=== PATIENT | female | born 1975 | race Caucasian/White ===

== ENCOUNTER 2018-07-11 18:51 | Inpatient (IN) | payer OTHER ==
[~2018-07-11] VITALS: Ht 167.6 cm; Wt 40.8 kg
--- NOTE | 2018-07-11 19:58 | NUR ---
Pre-Admission Assessment Pt is a 42 year old female seen in intake, A&Ox4. Pt appears flushed with tremors noted. Pt reports feeling anxious, however replies to all questions. Upon assessment, pt states she is being [facility] for ETOH withdrawal. Vital signs taken, rules of the unit explained such as vital signs Q4H, wasting of controlled substances, kitchen access, and smoking patio privileges. Pt verbalized understanding. Will continue with admission process upon arrival on unit.
[2018-07-11] MEDS ORDERED: ESCI10TA PO (20:26)
[2018-07-11] MEDS ORDERED: FERR325T28 PO (20:26)
[2018-07-11] MEDS ORDERED: ATOR10TA PO (20:26)
[2018-07-11 20:30] VITALS: BP 152/85
[2018-07-11] MEDS ORDERED: MAGNESIUM HYDROXIDE 30 ML LIQUID UDC PO PRN (20:30)
[2018-07-11] MEDS ORDERED: ONDANSETRON ODT 4 MG TAB.RAPDIS SL PRN (20:30)
[2018-07-11] MEDS ORDERED: LORAZEPAM 2 MG/1 ML VIAL IM PRN (20:30)
[2018-07-11] MEDS ORDERED: ACETAMINOPHEN 325 MG TABLET PO PRN (20:30)
[2018-07-11] MEDS ORDERED: LOPERAMIDE HCL 2 MG CAPSULE PO PRN ×2 (20:30)
[2018-07-11] MEDS ORDERED: MAG HYDROX/AL HYDROX/SIMETH 30 ML LIQUID UDC PO PRN (20:30)
[2018-07-11] MEDS ORDERED: THIAMINE HCL 200 MG/2 ML VIAL IM ONE (20:30)
[2018-07-11] MEDS ORDERED: LORAZEPAM 1 MG TABLET PO PRN (20:30)
[2018-07-11] MEDS ORDERED: MIRALAX 17 GM POWD.PACK PO PRN (20:30)
[2018-07-11] MEDS ORDERED: DICYCLOMINE HCL 20 MG TABLET PO PRN (20:30)
[2018-07-11] MEDS ORDERED: ONDANSETRON 4 MG/2 ML VIAL IM PRN (20:30)
[2018-07-11] MEDS ORDERED: IBUPROFEN 600 MG TABLET PO PRN (20:30)
--- NOTE | 2018-07-11 20:30 | NUR ---
Admission The patient is a 42 year old female who presents to [facility] for medically supervised withdrawal from ETOH-Vodka. Patient was escorted on to the unit at 2008 by a female CHECKERING MACHINE ADJUSTER where body search was conducted. Skin check rendered by primary nurse with skin noted intact. Patient is ambulatory with no assistance needed. She is noted to be anxious, restless with flat, depressed affect. She is noted to be disheveled with uncombed hair. She is noted during admission assessment to be very fidgety, often repeating herself, and stating Im just really nervous about being here. She is alert and oriented x4, speech is clear; she is able to make good eye contact during interview often noted to be emotionally labile. She reports her substance use as: 1. ETOH-Vodka: Patient took her first drink of alcohol at the age of [age] years old. She is currently drinking 473mls daily for the past year. Her last drink was 07/11/18 at 0400 drinking 60mls of vodka. When asked if patient is experiencing any signs or symptoms of withdrawal patient states right now Im just feeling nervous and sometimes I get cold. She is noted to be tremulous, increased chills and sweats, anxious, and irritable. Patient denies any seizure history, withdrawal induced delirium, and withdrawal induced cardiac complications, overdoses, blackouts, involuntary psych hospitalizations. She reports her current PCP is Dr. Morse in her hometown of [place]. She denies a current psychiatrist. She reports her past medical history of Anxiety (diagnosed January 2018), hyperlipidemia (diagnosed January 2018), and anemia (diagnosed May 2018). Patient is noted with home medications of Ferrous Sulfate 325mg BID with meals, Lipitor 10mg QHS and Lexapro 10mg daily. Patient reports she was prescribed Lexapro for her anxiety and denies ever being diagnosed with depression. She states I dont feel like Im depressed. Im more stressed than I am that. Patient explains of recently being diagnosed with Anemia and states I went in for a routine physical where they did lab work during the second week of May. I received a phone call that same night telling me to go into the Emergency Room at [facility] because my iron was critically below the normal range. So I was admitted into [facility] for two days and received a blood transfusion and then they sent me home. I was home for about 2 days and started to have diarrhea and feeling lighted headed. I went back to the hospital where I was admitted on more time for 4 days. During those four days they ran a CT scan of my Abdomen and they told me there is scarring on my liver. I also got a colonoscopy where they did a biopsy of my colon, large and small intestine. I never got a result. The last blood work that I received was on 07/07/18 and my results are currently pending. All I remember them telling me is that there is inflammation in my abdomen. Patient reports her drinking started about a year ago. She states It all started because my and I were fighting way too much. My kids are teenagers and feel like they can make adult decisions. I drink to escape the stress. She reports she is seeking treatment and wants to get sober because I was to get healthy again. I want to keep my family together and I know this is the way to do it. Patient reports since she has started drinking consistently for the past year, she has not attempted to get sober and states the stress is too high that I felt like I need to drink. Patient reports that her support system is her immediately family and they are the ones who encouraged her to receive treatment. The consequence of her drinking has been this all is affecting my marriage and my relationship with my children. I dont want my family to be or for it to fall apart. Patient is very motivated in maintaining a sober lifestyle and is willing to seek detention treatment but is unsure of the process or of the location of the treatment facility. Explained to patient that administration would be made aware and assist patient with placement. Patient is able to verbalize understanding. Vitals signs rendered and noted as: 152/85, 89, 18, 99%, 98.2, 0/10 pain. Breathing even and non labored. Lung sounds clear. Bowel sounds active in all quadrants. Patient follows a regular diet. Allergies to Bactrim and Doxycycline. Full code. Height is noted 56 and weight 90lbs. Smoking approximately 20 cigarettes a day. Educated patient about plan of care including detox, group therapy, individual therapy, discharge planning and she was able to verbalize understanding. Admission CIWA noted to be 17. All information was relayed to MD with new orders for PRN medications for increased signs and symptoms of withdrawal. Labs ordered to be rendered. All needs attended to promptly. Will continue plan of care as ordered.
[2018-07-11 20:53] LABS: *URINE HCG, QUAL NEGATIVE (NEGATIVE)
[2018-07-11 21:06] LABS: *AMPHETAMINE, URINE NEGATIVE (NEGATIVE); *BARBITURATE, URINE NEGATIVE (NEGATIVE); *CANNABINOID, URINE NEGATIVE (NEGATIVE); *COCCAINE, URINE NEGATIVE (NEGATIVE); *OPIATE, URINE NEGATIVE (NEGATIVE); *PHENCYCLIDINE SCREEN,URINE NEGATIVE (NEGATIVE)
[2018-07-11] MEDS: LORAZEPAM 1 MG TABLET PO PRN (22:47)
--- NOTE | 2018-07-11 22:50 | NUR ---
PRN Medication Administration Patient is noted with increased agitation, tremulous, chills, sweats, restlessness, anxiety, intermittent headache. CIWA noted to be 17. PRN Ativan 2mg administered as per order. Will continue to monitor.
[2018-07-11 23:29] LABS: BASOPHILS # (AUTO) 0.1 K/uL (0.0-8.0); BASOPHILS % (AUTO) 1.9 % (0.0-2.0); EOSINOPHILS # (AUTO) 0.1 K/uL (0.0-0.7); EOSINOPHILS % (AUTO) 1.5 % (0.0-7.0); HEMATOCRIT 30.2 % (31.2-41.9); HEMOGLOBIN 9.8 g/dL (10.9-14.3); LYMPHOCYTES # (AUTO) 1.3 K/uL (20.0-40.0); LYMPHOCYTES % (AUTO) 23.2 % (20.5-51.5); MEAN CORPUSCULAR HEMOGLOBIN 27.5 uug (24.7-32.8); MEAN CORPUSCULAR HGB CONC 32 g/dL (32.3-35.6); MEAN CORPUSCULAR VOLUME 84.7 fL (75.5-95.3); MONOCYTES # (AUTO) 0.5 K/uL (2.0-10.0); MONOCYTES % (AUTO) 9.4 % (0.0-11.0); NEUTROPHILS # (AUTO) 3.7 K/uL (1.8-8.9); PLATELET COUNT (AUTO) 243 K/uL (179-408); RED BLOOD CELL COUNT(AUTO) 3.57 MIL/uL (3.63-4.92); WHITE BLOOD COUNT (AUTO) 5.8 K/uL (3.8-11.8)
[2018-07-11 23:46] LABS: ALANINE AMINOTRANSFERASE 19 U/L (14-59); ALKALINE PHOSPHATASE 69 U/L (50-136); AMYLASE 107 U/L (25-115); ASPARTATE AMINOTRANSFERASE 38 U/L (15-37); BILIRUBIN,TOTAL 0.3 mg/dL (0.2-1.0); CARBON DIOXIDE 26 mmol/L (21-32); CHLORIDE 104 mmol/L (98-107); CREATININE 0.8 mg/dL (0.6-1.3); GLUCOSE 76 mg/dL (74-106); LIPASE 281 U/L (73-393); MAGNESIUM 1.4 mg/dL (1.8-2.4); TOTAL PROTEIN, SERUM 6.7 g/dL (6.4-8.2); UREA NITROGEN, BLOOD 9 mg/dL (7-18)
[2018-07-11 23:55] LABS: THYROID STIMULATING HORMONE 1.825 mIU/mL (0.358-3.740)
[2018-07-12] VITALS (7 sets, daily range): BP systolic 121–135; BP diastolic 80–85
--- NOTE | 2018-07-12 | NUR ---
PRN Medication Reassessment/CIWA Assessment Patient is noted in bed with eyes closed. Breathing even and non labored. Patient is easily awakened to verbal stimuli. CIWA assessment completed and patient is noted with increased anxiety, easily irritable, sweats, and tremulous to touch. CIWA noted to be 4. Vitals rendered. PRN Ativan 2mg noted to be effective. Will continue to monitor.
[2018-07-12 00:02] LABS: ETHANOL < 3 MG/DL (0-0)
[2018-07-12] MEDS ORDERED: MAGNESIUM OXIDE 400 MG TABLET PO ONE (00:15)
[2018-07-12] MEDS ORDERED: POTASSIUM CHLORIDE 20 MEQ TAB.PRT.SR PO ONE (00:15)
--- NOTE | 2018-07-12 01:00 | NUR ---
Labs resulted. Potassium resulted 3.0 and magnesium 1.4. Per unit protocol potassium supplemented with KDUR 40meq onetime dose and Magnesium with Mag Ox 800mg one time dose. Patient tolerated well. Will continue to monitor.
[2018-07-12] MEDS ORDERED: NORG1TAB PO (03:45)
--- NOTE | 2018-07-12 04:37 | NUR ---
CIWA Assessment Patient is noted in bed with eyes closed. Breathing even and non labored. Vitals rendered. Patient is noted to easily fall back to sleep with no signs or symptoms of withdrawal verbalized. CIWA not able to be completed as per order. Will continue to monitor.
--- NOTE | 2018-07-12 06:59 | NUR ---
End of Shift Patient is noted in bed with eyes closed. Breathing even and non labored. Patient continues on PRN medications for increased signs and symptoms of withdrawal. Patient received PRN Ativan 2mg for increased anxiety, restlessness, agitation, tremors, chills and sweats with medication noted to be effective. Labs resulted and Potassium noted at 3.0 and magnesium noted at 1.4. One time orders for KDUR 40meq and Mag ox 800mg. Last noted CIWA 4. Patient noted to sleep a total of 6 hours. All needs attended to promptly. Will continue plan of care as ordered.
--- NOTE | 2018-07-12 07:30 | NUR ---
START OF SHIFT Pt 42 y/o female admitted for etoh withdrawal. Pt received in room awake watching television. Pt alert and oriented to name, place, and time. Perrla. Skin warm and moist to touch. Respirations even and unlabored. Appears disheveled. Hair uncombed. Clothes and blankets scattered throughout the room. Encouraged to maintain hygiene. Anxious and restless. Not able to lay still. Bilateral hand tremors noted. Intermittent perspiration. Complaints of generalized discomfort. It was reported the that pt slept for 6 hours last night. Last ciwa=4 @ 0000. Pt is on prn ativan. Bed on lowest position with side rails x2 up for safety. Call light within reach.
[2018-07-12] MEDS: LORAZEPAM 1 MG TABLET PO PRN (08:34)
[2018-07-12] MEDS: THIAMINE HCL 100 MG TABLET PO SCH (08:34)
[2018-07-12] MEDS: FOLIC ACID 1 MG TABLET PO SCH (08:34)
[2018-07-12] MEDS: MULTIVITAMINS,THERAPEUTIC TABLET PO SCH (08:34)
--- NOTE | 2018-07-12 08:38 | NUR ---
PRN ATIVAN ciwa=16. Very anxious and restless. Fidgety. Constantly switching positions in bed. Irritable. Bilateral hand tremors. Intermittent perspiration. Ativan 2mg po prn per MD order given and tolerated well.
[2018-07-12] MEDS ORDERED: TUBERCULIN,PURIF.PROT.DERIV. 5 TU/0.1 ML TEST ID ONE (09:00)
--- NOTE | 2018-07-12 09:38 | NUR ---
PRN LONI WATT ciwa=8. Pt anxious. Irritable. Fidgety. Bilateral hand tremors. Pressured speech.
[2018-07-12] MEDS: ESCITALOPRAM OXALATE 10 MG TABLET PO SCH (10:18)
[2018-07-12] MEDS ORDERED: 5 DAY PHENOBARBITAL TAPER -SERENITY PROTOCOL PO PRN (10:30)
--- NOTE | 2018-07-12 12:00 | NUR ---
CIWA ASSESSMENT ciwa=10. Bilateral hand tremors noted. Anxious and restless. Pressured speech. Not able to sit still. Pacing. Complaints of intermittent perspiration and generalized discomfort.
[2018-07-12] MEDS: PHENOBARBITAL 60 MG TABLET PO SCH ×2 (14:03→22:07)
--- NOTE | 2018-07-12 16:04 | NUR ---
CIWA ASSESSMENT ciwa=10. Anxious and restless. Pressured speech. Bilateral hand tremors noted. Irritable. Not able to sit still. Pacing. Complaints of generalized discomfort.
[2018-07-12] MEDS: FERROUS SULFATE 325 MG TABEC PO SCH (17:05)
--- NOTE | 2018-07-12 18:17 | NUR ---
END OF SHIFT Pt 42 y/o male admitted for etoh withdrawal. Pt alert and oriented to name, place, and time. Perrla. Skin warm and moist to touch. Respirations even and unlabored. Appears disheveled and unkempt. Hair uncombed. Clothes and empty drink cups scattered throughout the room. Encouraged to maintain hygiene. Mostly isolative to room throughout the day with minimal peer interaction. Selective with group activity. Medication compliant. Last ciwa= 10 @1600. Pt started on a 5 day Phenobarbital taper today and is on day 1. Bed on lowest position with side rails x2 up for safety. Call light within reach.
--- NOTE | 2018-07-12 19:30 | NUR ---
START OF SHIFT Pt is a 42 y/o female admitted on 07/11/18 for ETOH withdrawal. Pt is on a 5 day Phenobarbital taper, tolerating well. Last CIWA 10 and PRN Ativan 2 mg administered during day shift. Upon assessment pt presents with restlessness with difficulty sitting still, severe anxiety, tremors, agitation, difficulty thinking clearly, headache, disheveled appearance, difficulty falling asleep, unkempt room. Medications due. Safety measures in place. Call light within reach. Will continue to monitor.
--- NOTE | 2018-07-12 20:00 | NUR ---
CIWA ASSESSMENT CIWA 15. Pt presents with difficulty sitting still, severe anxiety, tremors, agitation, difficulty thinking clearly, headache, disheveled appearance, difficulty falling asleep, unkempt room. Safety measures in place. Call light within reach. Will continue to monitor.
[2018-07-12] MEDS: ATORVASTATIN 10 MG TABLET PO SCH (20:22)
--- NOTE | 2018-07-12 20:22 | NUR ---
PRN ATIVAN 1 MG ADMINISTRATION CIWA 15. Pt presents with difficulty sitting still, severe anxiety, tremors, agitation, difficulty thinking clearly, headache. Safety measures in place. Call light within reach. Will continue to monitor.
--- NOTE | 2018-07-12 21:22 | NUR ---
PRN ATIVAN REASSESSMENT CIWA 12. Pt has improvement in anxiety and tremors. Pt reports anxiety is still high. Encouraged relaxation techniques. Safety measures in place. Call light within reach. Will continue to monitor.
[2018-07-12] MEDS: diphenhydrAMINE 50 MG CAPSULE PO PRN (23:13)
--- NOTE | 2018-07-12 23:13 | NUR ---
PRN BENADRYL ADMINISTRATION Pt requests sleep aid, reports difficulty falling asleep. Safety measures in place. Call light within reach. Will continue to monitor.
--- NOTE | 2018-07-13 | NUR ---
CIWA DEFERRED AND VITALS REFUSED Pt laying in bed with eyes closed, CIWA deferred, to be assessed when pt is awake per orders. Vitals refused. Respirations even and unlabored. Safety measures in place. Call light within reach. Will continue to monitor.
--- NOTE | 2018-07-13 00:13 | NUR ---
PRN BENADRYL REASSESSMENT Pt laying in bed with eyes closed, medication noted effective.
[2018-07-13 04:00] VITALS: BP 131/83
--- NOTE | 2018-07-13 04:00 | NUR ---
CIWA ASSESSMENT CIWA 11. Pt woke up and requests to smoke. Pt presents with anxiety, restlessness, tremors, sweats.
[2018-07-13] MEDS: HYDROXYZINE PAMOATE 25 MG CAPSULE PO PRN ×3 (04:32→20:24)
--- NOTE | 2018-07-13 04:32 | NUR ---
PRN VISTARIL ADMINISTRATION Pt reports anxiety with difficulty going back to sleep. Safety measures in place. Call light within reach. Will continue to monitor.
--- NOTE | 2018-07-13 05:32 | NUR ---
PRN VISTARIL REASSESSMENT Pt laying in bed with eyes closed, medication noted effective. Safety measures in place. Call light within reach. Will continue to monitor.
--- NOTE | 2018-07-13 07:07 | NUR ---
END OF SHIFT Pt is a 42 y/o female admitted on 07/11/18 for ETOH withdrawal. Pt is on a 5 day Phenobarbital taper, tolerating well. Pt presented with restlessness with difficulty sitting still, severe anxiety, tremors, agitation, difficulty thinking clearly, headache, disheveled appearance, difficulty falling asleep, unkempt room. Scheduled medications and PRN Ativan 1 mg, Vistaril, Benadryl administered, effective in S/S of withdrawal as verbalized by pt. Last CIWA 11. Pt slept 7 hours. Intake 1598 ml, void x 3, stool x 0. Safety measures in place. Call light within reach. Endorsed to day shift nurse.
--- NOTE | 2018-07-13 07:31 | NUR ---
START OF SHIFT NOTE Received report from night nurse, 42 year old female admitted for ETOH withdrawal and continues with 5 days Phenobarbital taper tolerated well. Per endorsement patient received PRN Ativan, Benadryl, Vistaril effective per night nurse, last CIWA score was-11, slept for 7 hours. Received patient asleep responsive to verbal and tactile stimuli. Breathing normal no SOB noted. Skin intact warm and dry to touch. All safety measures in place. Will continues with plan of care.
[2018-07-13 08:00] VITALS: BP 126/81
[2018-07-13 08:05] LABS: BASOPHILS # (AUTO) 0.1 K/uL (0.0-8.0); BASOPHILS % (AUTO) 2.4 % (0.0-2.0); EOSINOPHILS # (AUTO) 0.3 K/uL (0.0-0.7); HEMATOCRIT 29.5 % (31.2-41.9); HEMOGLOBIN 9.7 g/dL (10.9-14.3); LYMPHOCYTES # (AUTO) 1.1 K/uL (20.0-40.0); LYMPHOCYTES % (AUTO) 25.3 % (20.5-51.5); MEAN CORPUSCULAR HEMOGLOBIN 28.8 uug (24.7-32.8); MEAN CORPUSCULAR HGB CONC 33 g/dL (32.3-35.6); MEAN CORPUSCULAR VOLUME 87.5 fL (75.5-95.3); MONOCYTES # (AUTO) 0.5 K/uL (2.0-10.0); NEUTROPHILS # (AUTO) 2.3 K/uL (1.8-8.9); NEUTROPHILS % (AUTO) 55.3 % (38.5-71.5); PLATELET COUNT (AUTO) 267 K/uL (179-408); RED BLOOD CELL COUNT(AUTO) 3.38 MIL/uL (3.63-4.92); WHITE BLOOD COUNT (AUTO) 4.2 K/uL (3.8-11.8)
[2018-07-13] MEDS: FOLIC ACID 1 MG TABLET PO SCH (08:12)
[2018-07-13] MEDS: THIAMINE HCL 100 MG TABLET PO SCH (08:12)
[2018-07-13] MEDS: PHENOBARBITAL 60 MG TABLET PO SCH ×4 (08:12→20:24)
[2018-07-13] MEDS: MULTIVITAMINS,THERAPEUTIC TABLET PO SCH (08:12)
[2018-07-13] MEDS: FERROUS SULFATE 325 MG TABEC PO SCH ×2 (08:12→17:05)
[2018-07-13] MEDS: ESCITALOPRAM OXALATE 10 MG TABLET PO SCH (08:12)
--- NOTE | 2018-07-13 08:12 | NUR ---
CIWA ASSESSMENT CIWA score noted -10, patient reported increased in anxiety, agitation, restless, bilateral hand tremors noted. Patient received her scheduled medications. Will cont to monitor.
[2018-07-13 08:20] LABS: BILIRUBIN,DIRECT 0.1 mg/dL (0.0-0.2); BILIRUBIN,TOTAL 0.3 mg/dL (0.2-1.0); CREATININE 0.8 mg/dL (0.6-1.3); MAGNESIUM 1.8 mg/dL (1.8-2.4); POTASSIUM 3.7 mmol/L (3.5-5.1); TOTAL PROTEIN, SERUM 6.4 g/dL (6.4-8.2)
[2018-07-13 12:00] VITALS: BP 134/87
--- NOTE | 2018-07-13 12:18 | NUR ---
CIWA ASSESSMENT CIWA score noted -11, Patient noted anxious, agitated, restless, diaphoretic, bilateral hand tremors noted. Patient received her scheduled medications. Will cont to monitor.
--- NOTE | 2018-07-13 12:43 | NUR ---
Therapist prompted client to attend all group therapy sessions. Client stated she is feeling less fatigued she will attend.
--- NOTE | 2018-07-13 13:50 | NUR ---
PRN VISTARIL Patient reported increased in anxiety, agitation, restless. Patient provided with non pharmacological intervention with no relief. PRN Vistaril 25mg PO administered as ordered. Will cont to monitor and reassess the patient.
--- NOTE | 2018-07-13 14:50 | NUR ---
VISTARIL REASSESSMENT Per patient Vistaril was effective anxiety, agitation, restless subsided.
[2018-07-13 16:00] VITALS: BP 126/96
--- NOTE | 2018-07-13 19:03 | NUR ---
END OF SHIFT NOTE Gave report to night nurse, patient is admitted for ETOH withdrawal and continues with Phenobarbital taper tolerating well. Patient presented with flat facial expression, unkempt, anhedonia, anxiety, agitation, restlessness, sweats, bilateral hand tremors. Patient was given her scheduled medications along with PRN Vistaril for anxiety noted to be effective. Last CIWA score noted- 10. Patient noted attending group activities. Encourage PO fluids as tolerated. Vital signs WNL. Patient denies any SI/HI. All safety measures in place. Endorse care to night nurse.
--- NOTE | 2018-07-13 19:10 | NUR ---
Start of Shift Received 30 year old female admitted 07/11/18 to [facility] for medically supervised withdrawal from ETOH. Pt currently on day 2 of 5 day Phenobarbital taper, tolerating well. Last CIWA 10 @ 1600. PRN Vistoril given during day shift. Pt in bed, awake, alert, and oriented. Pt tearful, anxious, agitated, and visible tremors. Depressed and feeling guilty about her children. Upset that her would not let her speak with them. Pt redirected to recovery and plan of care which she verbalizes understanding and willingness to comply. Bed low, side rails up x 2, and call otero in reach. Continue to monitor.
[2018-07-13 20:13] VITALS: BP 139/94
[2018-07-13] MEDS: CLONIDINE HCL 0.1 MG TABLET PO PRN (20:24)
--- NOTE | 2018-07-13 20:24 | NUR ---
PRN Clonidine/Vistaril Pt anxious, agitated and shaky. CIWA 12. BP 139/94. Clonidine and Vistaril given per order. Will monitor effect.
--- NOTE | 2018-07-13 21:19 | NUR ---
Reassess PRN Clonidine/Vistaril Pt has decreased anxiety. Shakiness has resolved. BP 134/87
[2018-07-13] MEDS: diphenhydrAMINE 50 MG CAPSULE PO PRN (21:58)
[2018-07-13] MEDS: ATORVASTATIN 10 MG TABLET PO SCH (21:58)
--- NOTE | 2018-07-13 21:58 | NUR ---
PRN Benadryl Pt requested something to help sleep. Benadryl given per order. Will monitor effect.
--- NOTE | 2018-07-13 22:58 | NUR ---
Reassess PRN Benadryl Medication effective. Pt resting with eyes closed. Respirations even and unlabored. Will continue to monitor.
--- NOTE | 2018-07-14 00:10 | NUR ---
CIWA deferred/Vital refused Pt resting with eyes closed. Respirations even and unlabored. CIWA deferred and vitals refused. Will continue to monitor.
--- NOTE | 2018-07-14 04:05 | NUR ---
CIWA deferred/Vitals refused Pt resting with eyes closed. Respirations are even and unlabored. CIWA deferred and vitals refused.
--- NOTE | 2018-07-14 06:44 | NUR ---
End of Shift Endorsing 30 year old female admitted 07/11/18 to [facility] for medically supervised withdrawal from ETOH. Pt currently on day 3 of 5 day Phenobarbital taper, tolerating well. Last CIWA 12 @ 1999. PRN Clonidine, Vistaril, and Benadryl given during maintenance supervisor 2nd shift. PO intake 1151 ml, voided x 3, BM x 0, and slept 8 hours. Pt in bed resting with eyes closed. Respirations are even and unlabored. Bed low, side rails up x 2, and call otero in reach.
[2018-07-14 07:33] LABS: BASOPHILS # (AUTO) 0.1 K/uL (0.0-8.0); EOSINOPHILS # (AUTO) 0.3 K/uL (0.0-0.7); EOSINOPHILS % (AUTO) 6.6 % (0.0-7.0); HEMATOCRIT 29.2 % (31.2-41.9); HEMOGLOBIN 9.7 g/dL (10.9-14.3); LYMPHOCYTES # (AUTO) 1.1 K/uL (20.0-40.0); LYMPHOCYTES % (AUTO) 26.1 % (20.5-51.5); MEAN CORPUSCULAR HEMOGLOBIN 29.4 uug (24.7-32.8); MEAN CORPUSCULAR HGB CONC 33 g/dL (32.3-35.6); MEAN CORPUSCULAR VOLUME 88.8 fL (75.5-95.3); MONOCYTES # (AUTO) 0.4 K/uL (2.0-10.0); MONOCYTES % (AUTO) 8.4 % (0.0-11.0); NEUTROPHILS # (AUTO) 2.5 K/uL (1.8-8.9); NEUTROPHILS % (AUTO) 56.9 % (38.5-71.5); PLATELET COUNT (AUTO) 273 K/uL (179-408); RED BLOOD CELL COUNT(AUTO) 3.29 MIL/uL (3.63-4.92); WHITE BLOOD COUNT (AUTO) 4.3 K/uL (3.8-11.8)
[2018-07-14 07:49] LABS: BILIRUBIN,DIRECT 0.1 mg/dL (0.0-0.2); BILIRUBIN,TOTAL 0.3 mg/dL (0.2-1.0); TOTAL PROTEIN, SERUM 6.3 g/dL (6.4-8.2)
--- NOTE | 2018-07-14 07:58 | NUR ---
START OF SHIFT NOTE Received report from night nurse, 42 year old female admitted for ETOH withdrawal and continues with 5 days Phenobarbital taper and on day 3 tolerating well. Per endorsement patient received PRN Benadryl, Vistaril, Clonidine effective per night nurse, last CIWA score was-12, slept for 8 hours. Received patient anxious, agitated, bilateral hand tremors. Patient is due for scheduled medications. Breathing normal no SOB noted. Skin intact warm and dry to touch. All safety measures in place. Will continues with plan of care.
[2018-07-14 08:00] VITALS: BP 108/69
[2018-07-14] MEDS: THIAMINE HCL 100 MG TABLET PO SCH (08:23)
[2018-07-14] MEDS: ESCITALOPRAM OXALATE 10 MG TABLET PO SCH (08:23)
[2018-07-14] MEDS: FERROUS SULFATE 325 MG TABEC PO SCH ×2 (08:23→17:06)
[2018-07-14] MEDS: PHENOBARBITAL 60 MG TABLET PO SCH ×3 (08:23→20:04)
[2018-07-14] MEDS: MULTIVITAMINS,THERAPEUTIC TABLET PO SCH (08:23)
[2018-07-14] MEDS: FOLIC ACID 1 MG TABLET PO SCH (08:23)
--- NOTE | 2018-07-14 08:23 | NUR ---
CIWA ASSESSMENT CIWA score noted -11, patient presented with flat facial expression, anxious, agitated, restless, sweats, bilateral hand tremors noted. Patient received her scheduled medications. Will cont to monitor.
[2018-07-14 10:11] LABS: HEPATITIS B SURFACE AG Negative (Negative)
[2018-07-14 12:00] VITALS: BP 115/72
--- NOTE | 2018-07-14 12:00 | NUR ---
CIWA ASSESSMENT CIWA score noted -10, patient continues to presented with flat facial expression, anxious, agitated, restless, sweats, bilateral hand tremors noted. Encourage patient to use distraction, patient verbalized understanding. Will cont to monitor.
[2018-07-14] MEDS: HYDROXYZINE PAMOATE 25 MG CAPSULE PO PRN ×2 (12:53→20:04)
--- NOTE | 2018-07-14 13:53 | NUR ---
VISTARIL REASSESSMENT Per patient Vistaril was effective anxiety, agitation, restless decreased.
--- NOTE | 2018-07-14 14:28 | NUR ---
Therapist prompted client to attend all group therapy sessions.
[2018-07-14 16:00] VITALS: BP 130/90
--- NOTE | 2018-07-14 19:10 | NUR ---
END OF SHIFT NOTE Gave report to night nurse, 42 year old female patient admitted for ETOH withdrawal and continues with phenobarbital taper tolerating well. Patient presented with sad facial expression, anhedonia, anxiety, agitation, restless, sweats, emotional volatility, general body discomfort, bilateral hand tremors, headache. Patient was given schedule medications along with PRN Vistaril noted to be effective. Last CI-. Patient denies any SI/HI. Vital signs WNL. Patient noted attending groups and activities. Encourage PO fluids as tolerated. All needs attended. All safety measures in place, call light within reach. Patient endorse to night nurse in stable condition.
--- NOTE | 2018-07-14 19:50 | NUR ---
Start of Shift Patient presents with increasing anxiety, tremors and noted to be fidgety. Patient is emotional, verbalized: "There are times when I really feel this way. I don't know, there are a bunch of things go through my mind." Patient is melancholic and is teary-eyed. Fall, universal, seizure and safety prec in place. Call light within reach. Latest CIWA=11. Will continue to monitor. Addendum: 07/15/18 at 0547 by TESSIE DIA RN CORRECTION: CIWA=12
[2018-07-14 20:00] VITALS: BP 134/93
[2018-07-14] MEDS: CLONIDINE HCL 0.1 MG TABLET PO PRN (20:04)
[2018-07-14] MEDS: ATORVASTATIN 10 MG TABLET PO SCH (20:04)
--- NOTE | 2018-07-14 20:05 | NUR ---
PRN Clonidine and Vistaril Patient c/o feeling anxious, noted to be emotional and with tremors observed. Administered Clonidine 0.1 mg PO PRN and Vistaril 25 mg PO PRN. Will reassess.
--- NOTE | 2018-07-14 21:05 | NUR ---
Clonidine and Vistaril reassess Patient verbalized relief from anxiety, with less tremors. Patient continues to be emotional.
[2018-07-14] MEDS: diphenhydrAMINE 50 MG CAPSULE PO PRN (22:39)
--- NOTE | 2018-07-14 22:40 | NUR ---
PRN Benadryl Patient c/o inability to sleep. Administered Benadryl 50 mg PO PRN. Will reassess.
--- NOTE | 2018-07-14 23:40 | NUR ---
Benadryl Reassess Patient lying in bed with eyes closed without facial grimacing nor SOB.
[2018-07-15] VITALS: BP 125/85
--- NOTE | 2018-07-15 | NUR ---
CIWA=11 Patient verbalized that she has intermittent anxiety and continues to have tremors. Patient stated that she is emotionally labile when she remembers things from her past.
[2018-07-15 04:00] VITALS: BP 129/87
--- NOTE | 2018-07-15 04:00 | NUR ---
CIWA=9 Patient continues to have intermittent anxiety, verbalized that she is less anxious now as compared to the start of shift. Patient still has tremors.
--- NOTE | 2018-07-15 07:22 | NUR ---
End of Shift Patient verbalized that she continues to have intermittent anxiety and tremors. Patient continues to be emotional, melancholic and is labile. Fall, universal, seizure and safety prec in place. Call light within reach. Latest CIWA=9, slept for 7 hours. Endorsed to AM shift nurse for continuity of care.
--- NOTE | 2018-07-15 07:30 | NUR ---
START OF SHIFT NOTE Received report from night nurse, 42 year old female admitted for ETOH withdrawal and continues with 5 days Phenobarbital taper tolerated well. Per endorsement patient received PRN Clonidine, Benadryl, Vistaril effective per night nurse, last CIWA score was-9, slept for 7 hours. Received patient asleep responsive to verbal and tactile stimuli. Breathing normal no SOB noted. Skin intact warm and dry to touch. All safety measures in place. Will continues with plan of care.
[2018-07-15 08:00] VITALS: BP 104/63
[2018-07-15] MEDS: MULTIVITAMINS,THERAPEUTIC TABLET PO SCH (08:11)
[2018-07-15] MEDS: FERROUS SULFATE 325 MG TABEC PO SCH ×2 (08:11→17:01)
[2018-07-15] MEDS: ESCITALOPRAM OXALATE 10 MG TABLET PO SCH (08:11)
[2018-07-15] MEDS: PHENOBARBITAL 60 MG TABLET PO SCH ×2 (08:11→20:45)
[2018-07-15] MEDS: FOLIC ACID 1 MG TABLET PO SCH (08:11)
[2018-07-15] MEDS: THIAMINE HCL 100 MG TABLET PO SCH (08:11)
--- NOTE | 2018-07-15 08:11 | NUR ---
CIWA ASSESSMENT Patient presented with labile facial expression, patient verbalized feeling anxious, restless, sweats, bilateral hand tremors noted. CIWA score noted-11. Patient received her schedule medications. Will cont to monitor.
[2018-07-15 08:14] LABS: IRON, SERUM 27 ug/dL (50-175)
[2018-07-15 12:00] VITALS: BP 126/84
--- NOTE | 2018-07-15 12:00 | NUR ---
CIWA ASSESSMENT CIWA score noted-10, patient continues to presented with sad facial expression, anxious, agitated, restless, sweats, bilateral hand tremors noted. Encourage patient to use distraction, patient verbalized understanding. Will cont to monitor.
[2018-07-15] MEDS: HYDROXYZINE PAMOATE 25 MG CAPSULE PO PRN ×2 (13:08→22:29)
--- NOTE | 2018-07-15 13:08 | NUR ---
PRN VISTARIL Patient came to the nursing station and reported increased in anxiety, agitation, restless. Patient provided with non pharmacological intervention with no relief. PRN Vistaril 25mg PO administered as ordered. Will cont to monitor and reassess the patient.
--- NOTE | 2018-07-15 14:08 | NUR ---
VISTARIL REASSESSMENT Per patient Vistaril was effective in lowering her anxiety, agitation, restless.
[2018-07-15 16:00] VITALS: BP 136/87
--- NOTE | 2018-07-15 19:15 | NUR ---
END OF SHIFT NOTE Gave report to night nurse, 42 year old female admitted for ETOH withdrawal and continues with Phenobarbital taper tolerating well. Patient continues to exhibit anxiety, agitation, restless, labile facial expression, anhedonia, unkempt room, diaphoretic, worried, patient was given scheduled medications and PRN Vistaril 25mg PO noted to be effective. Encourage PO fluids as tolerated. Last CIWA score was-9. Encourage patient to attend groups activities to learn new coping skills. Patient verbalized understanding. All safety measures in place, call light within reach. Patient endorse to night nurse in stable condition.
[2018-07-15 20:00] VITALS: BP 130/88
--- NOTE | 2018-07-15 20:00 | NUR ---
Start of Shift Patient noted to be anxious, isolative and melancholic. Patient is emotionally labile. Patient with tremors. Patient verbalized that her day was "okay. It could have been better." Hair is unkempt. Fall, universal, seizure and safety prec in place. Call light within reach. Latest CIWA=10. Will continue to monitor.
[2018-07-15] MEDS: ATORVASTATIN 10 MG TABLET PO SCH (20:45)
[2018-07-15] MEDS: diphenhydrAMINE 50 MG CAPSULE PO PRN (22:29)
[2018-07-15] MEDS: CLONIDINE HCL 0.1 MG TABLET PO PRN (22:29)
--- NOTE | 2018-07-15 22:30 | NUR ---
PRN Vistaril, Clonidine and Benadryl Patient c/o feeling increasingly anxious. Patient noted to be tremulous and emotional. UV=428/91, Pulse=92. Patient also c/o inability to sleep. Administered Vistaril 25 mg PO PRN, Clonidine 0.1 mg PO PRN and Benadryl 50 mg PO PRN. Will reassess.
--- NOTE | 2018-07-15 23:30 | NUR ---
Vistaril, Clonidine and Benadryl reassess Patient verbalized that she feels less anxious and tremulous. Patient also verbalized feeling sleepy.
[2018-07-16] VITALS: BP 118/79
--- NOTE | 2018-07-16 | NUR ---
CIWA=9 Patient with intermittent anxiety and nervousness. Patient continues to be emotional and have tremors.
[2018-07-16 04:00] VITALS: BP 121/78
--- NOTE | 2018-07-16 04:00 | NUR ---
CIWA=9 Patient verbalized having bad dreams and waking up emotional. Patient stated that she has intermittent anxiety and continues to have tremors.
--- NOTE | 2018-07-16 07:33 | NUR ---
End of Shift Patient continues to be emotionally labile. Patient with intermittent anxiety the whole shift, is melancholic and depressed. Patient also continues to have tremors. Fall, universal, seizure and safety prec in place. Call light within reach. Latest CIWA=9, slept for 7 hours. Endorsed to AM shift nurse for continuity of care.
--- NOTE | 2018-07-16 07:36 | NUR ---
BEGINNING OF SHIFT Patient endorsement report received from maintenance supervisor 2nd shift nurse, all pertinent information discussed. Patient with admitting Dx: etoh withdrawal. Patient currently with ongoing 5 day phenobarbital taper as ordered, patient is scheduled to receive last scheduled dose this morning. Per maintenance supervisor 2nd shift patient received PRN: Clonidine, Benadryl and Vistaril. Last CIWA score of: 9, and slept for 7 hours. Patient received awake, alert and oriented x4, educated regarding plan of care for the day and medication regimen. safety measure are in place. call light with in reach, will continue to monitor.
[2018-07-16 08:43] VITALS: BP 112/75
[2018-07-16] MEDS: ESCITALOPRAM OXALATE 10 MG TABLET PO SCH (08:45)
[2018-07-16] MEDS: THIAMINE HCL 100 MG TABLET PO SCH (08:45)
[2018-07-16] MEDS: FOLIC ACID 1 MG TABLET PO SCH (08:45)
[2018-07-16] MEDS: MULTIVITAMINS,THERAPEUTIC TABLET PO SCH (08:45)
[2018-07-16] MEDS: FERROUS SULFATE 325 MG TABEC PO SCH ×2 (08:45→17:35)
--- NOTE | 2018-07-16 08:45 | NUR ---
CIWA ASSESSMENT During shift noted exhibiting the following s/sx of withdrawal: fine tremors, barely sweating, anxiety and agitation, patient with CIWA score of: 8.
[2018-07-16] MEDS ORDERED: PHENOBARBITAL 60 MG TABLET PO SCH (09:00)
--- NOTE | 2018-07-16 12:22 | NUR ---
Therapist prompted client to attend all group therapy sessions.
--- NOTE | 2018-07-16 12:30 | NUR ---
CIWA ASSESSMENT Continues to present with: fine tremors, barely sweating, anxiety and agitation, patient with CIWA score of: 8. Will continue to monitor.
[2018-07-16 13:48] VITALS: BP 125/84
[2018-07-16] MEDS ORDERED: HYDR-3895 PO (15:12)
[2018-07-16] MEDS ORDERED: CLON0.1T14 PO (15:12)
[2018-07-16 17:29] VITALS: BP 120/81
--- NOTE | 2018-07-16 17:50 | NUR ---
CIWA ASSESSMENT Still noted exhibiting the following s/sx of withdrawal: fine tremors, barely sweating, anxiety and agitation, patient with CIWA score of: 8. Safety measures in place.
--- NOTE | 2018-07-16 18:57 | NUR ---
END OF SHIFT Patient continues under close observation. Admitting Dx: etoh withdrawal. Patient completed 5 day Phenobarbital taper this morning, received last dose. Patient appears disheveled, patient was encouraged to self groom and maintain personal area. Has worried/preoccupied facial expression. Noted with flat affect and depressed mood. Encouraged to develop coping skills and utilization of non pharmacological interventions. Patient is scheduled to be discharged tomorrow morning, noted self motivated towards sobriety. During shift noted exhibiting the following s/sx of withdrawal: fine tremors, barely sweating, anxiety and agitation, patient with last CIWA score of: 8. Received no PRN medications during shift. Safety measures in place, call light kept with in reach, all needs met and rendered. Patient endorsed to assistant shift supervisor nurse, all pertinent information was discussed.
--- NOTE | 2018-07-16 18:57 | NUR ---
START OF SHIFT NOTE Endorsed patient is a 42 year old female patient completed 5 day Phenobarbital taper ordered for Alcohol withdrawal, tolerated well, and scheduled for discharging tomorrow at 0930. Patient is alert and oriented x4:Person, time, place, and situation. She is cooperative, and verbally appropriate. Last CIWA =8 at 1729. Patient appears anxious, agitated, irritable, with barely sweating, tremors, and restlessness. No PRN Medications administrated during day shift. Encouraged to fluids intake as tolerated. Encouraged to attend group activities. All needs met. Safety measures in place: Call light within reach, bed I in the lowest position, and locked; Padded bed rails up x2. Patient endorsed by day shift nurse. Will continue to monitor.
[2018-07-16 20:00] VITALS: BP 129/86
--- NOTE | 2018-07-16 20:00 | NUR ---
CIWA ASSESSMENT CIWA=9. Patient noted with anxiety, agitation, nervousness, not visible bilateral tremors, sweating, restlessness, and fatigue. PRN medications will be administrated as ordered. Safe and calm environment provided. All needs met. Safety measures in place: Call light within reach, bed I in the lowest position, and locked; Padded bed rails up x2. Will continue to monitor.
[2018-07-16] MEDS: ATORVASTATIN 10 MG TABLET PO SCH (20:33)
[2018-07-16] MEDS: HYDROXYZINE PAMOATE 25 MG CAPSULE PO PRN (22:36)
[2018-07-16] MEDS: diphenhydrAMINE 50 MG CAPSULE PO PRN (22:36)
--- NOTE | 2018-07-16 22:36 | NUR ---
PRN VISTARIL PO AND PRN BENADRYL PO ADMINISTRATION PRN Vistaril 25 mg PO administrated for anxiety at 2236, and PRN Benadryl 50 mg PO administrated for insomnia at 2236, as ordered. Will be reassessing in one hour. Patient tolerated well. Encouraged to fluids intake as tolerated. Safe and calm environment provided. All needs met. Safety measures in place: Call light within reach, bed I in the lowest position, and locked; Padded bed rails up x2. Will continue to monitor.
--- NOTE | 2018-07-16 23:36 | NUR ---
PRN VISTARIL PO AND PRN BENADRYL PO RE-ASSESSMENT Patient reports, "Medications help to me, I less anxious now". PRN Vistaril 25 mg PO administrated for anxiety at 2235 was effective, and PRN Benadryl 50 mg PO administrated for insomnia at 2235 was non effective: Patient not sleeping, and asked go to smocking. Safe and calm environment provided. All needs met. Safety measures in place: Call light within reach, bed I in the lowest position, and locked; Padded bed rails up x2. Will continue to monitor.
[2018-07-16] MEDS: CLONIDINE HCL 0.1 MG TABLET PO PRN (23:49)
--- NOTE | 2018-07-16 23:49 | NUR ---
PRN CLONIDINE PO ADMINISTRATION PRN Clonidine 0.1 mg PO administrated for agitation at 2349, as ordered. Will be reassessing in one hour. Patient tolerated well. Encouraged to fluids intake as tolerated. Safe and calm environment provided. All needs met. Safety measures in place: Call light within reach, bed I in the lowest position, and locked; Padded bed rails up x2. Will continue to monitor.
[2018-07-17] VITALS: BP 120/76
--- NOTE | 2018-07-17 | NUR ---
CIWA ASSESSMENT CIWA=9. Patient noted with anxiety, agitation, insomnia, nervousness, not visible bilateral tremors, sweating, restlessness, and fatigue. PRN Vistaril PO and PRN Benadryl PO administrated as ordered. Safe and calm environment provided. All needs met. Safety measures in place: Call light within reach, bed I in the lowest position, and locked; Padded bed rails up x2. Will continue to monitor. Addendum: 07/17/18 at 0401 by KEVIN KHOURY RN PRN Clonidine 0.1 mg PO administrated for agitation at 2349, as ordered
--- NOTE | 2018-07-17 00:49 | NUR ---
PRN CLONIDINE PO RE-ASSESSMENT Patient is sleeping. Respirations are unlabored and even. RR:14. PRN Clonidine 0.1 mg PO administrated for agitation at 2349 was effective. Safe and calm environment provided. All needs met. Safety measures in place: Call light within reach, bed I in the lowest position, and locked; Padded bed rails up x2. Will continue to monitor.
--- NOTE | 2018-07-17 04:00 | NUR ---
VS REFUSED, CIWA DEFERRED. VS refused, CIWA deferred due to patient sleeping. Respirations are unlabored and even. RR:15. Will be assessed when patient awakens. All needs met. Safety measures in place: Conner light within reach, bed is locked in lowest position, padded rails up x2. Will continue to monitor closely.
--- NOTE | 2018-07-17 07:29 | NUR ---
END OF SHIFT NOTE The patient is a 42 year old female patient presented for alcohol withdrawal, completed ordered 5 day Phenobarbital taper, and tolerated well. Patient remains compliant with medications, treatment, and diet regime. Patient scheduled for discharging today at 0930. Patient is alert and oriented x4, cooperative, with depressive affect and anxious mood. CIWA=9 at 2000. The latest CIWA=9 at 0000. Throughout my shift the patient noted with anxiety, agitation, insomnia, nervousness, not visible bilateral tremors, sweating, restlessness, and fatigue. PRN Vistaril 25 mg PO administrated for anxiety at 2236 was effective, PRN Benadryl 50 mg PO administrated for insomnia at 2236 was no effective, and PRN Clonidine 0.1 mg PO administrated for agitation at 2349 was effective. Patient encouraged to fluids intake as tolerated. Encouraged to attend group activities. Patient slept for 5 hours, intake 1,151 ml, output: voided x4. All needs met. Safety measures in place: Conner light within reach, bed is locked in lowest position, padded rails up x2. Patient endorsed to day shift nurse.
--- NOTE | 2018-07-17 07:46 | NUR ---
BEGINNING OF SHIFT Patient received awake, alert and oriented x4, is scheduled to be discharged this morning, Noted self motivated towards sobriety. Will educate patient regarding all discharge instructions. As per shift production associate endorsement report patient received PRN: Clonidine, Benadryl and Vistaril. Last CIWA score of: 9, and slept for 6 hours. Safety measure are in place. call light with in reach, will continue to monitor.
[2018-07-17 08:23] VITALS: BP 118/78
[2018-07-17] MEDS: FOLIC ACID 1 MG TABLET PO SCH (09:07)
[2018-07-17] MEDS: MULTIVITAMINS,THERAPEUTIC TABLET PO SCH (09:07)
[2018-07-17] MEDS: ESCITALOPRAM OXALATE 10 MG TABLET PO SCH (09:07)
[2018-07-17] MEDS: FERROUS SULFATE 325 MG TABEC PO SCH (09:07)
[2018-07-17] MEDS: THIAMINE HCL 100 MG TABLET PO SCH (09:07)
[2018-07-17] MEDS: HYDROXYZINE PAMOATE 25 MG CAPSULE PO PRN (09:10)
--- NOTE | 2018-07-17 09:38 | NUR ---
DISCHARGE Patient discharged off the unit at 0938 in stable condition, prior to discharge patient was educated regarding plan of care for the day and medication regimen with good verbal understanding. Patient noted self motivated towards sobriety. Received PRN: Vistaril 25mg PO for increase anxiety at 0910, prior to discharge patient verbalized feeling less anxious. Patients vital signs WNL. Last CIWA score of: 5. Patients prescriptions, and discharge instructions were placed in patients personal duffel bag. Patient off the unit at 0938.
== END 2018-07-17 09:38 | disposition other institution (70) | DRG 895 ==
LOC: SRC 18:56
PROVIDERS: ADMIT Internal Medicine; ATTEND Internal Medicine
PROC: HZ2ZZZZ Detoxification Services for Substance Abuse Treatment (ICD-10-PCS; principal; 2018-07-11)
PROC: HZ41ZZZ Group Counseling for Substance Abuse Treatment, Behavioral (ICD-10-PCS; 2018-07-13)
PROC: HZ31ZZZ Individual Counseling for Substance Abuse Treatment, Behavioral (ICD-10-PCS; 2018-07-13)
DX: F10.230 Alcohol dependence with withdrawal, uncomplicated (principal); Y90.0 Blood alcohol level of less than 20 mg/100 ml; E87.6 Hypokalemia; E83.42 Hypomagnesemia; F41.1 Generalized anxiety disorder; F17.210 Nicotine dependence, cigarettes, uncomplicated; E78.5 Hyperlipidemia, unspecified; Z79.899 Other long term (current) drug therapy; Z81.1 Family history of alcohol abuse and dependence; D50.9 Iron deficiency anemia, unspecified; R74.0 Nonspecific elevation of levels of transaminase and lactic acid dehydrogenase [LDH]; F41.9 Anxiety disorder, unspecified; F32.9 Major depressive disorder, single episode, unspecified
CPT/HCPCS: 36415; 70030-TC; 80307; 83550; 83690; 83735; 84443; 84703; 85025; 86580; 86592; 86705; 86803; 87210; 87340; 87806; G0480; J8499; Q0163